=== PATIENT | male | born 1990 | race Caucasian/White ===

== ENCOUNTER 2023-10-19 12:38 | Emergency (ER) | payer OTHER, SELFPAY ==
[2023-10-19 12:43] VITALS: BP 152/92; PULSE 84; TEMP 37; O2SAT 98; BMI 29.0
--- NOTE | 2023-10-19 12:46 | XRR_ITS ---
PROCEDURE INFORMATION: Exam: XR Lumbosacral Spine Exam date and time: 10/19/2023 1:27 PM Age: 33 years old Clinical indication: Injury or trauma; Blunt trauma (contusions or hematomas); Injury details: PT arrives pov C/O lower back pain after falling while pushing a couch. PT states he has HX of back issues. Pain has been unrelieved over the past few days with tylenol and ibuprofen. ; Additional info: Fall TECHNIQUE: Imaging protocol: Radiologic exam of the lumbosacral spine. Views: 2 or 3 views. COMPARISON: No relevant prior studies available. FINDINGS: Bones/joints: Normal. No acute fracture. Normal alignment. Soft tissues: Unremarkable. XR/XR lumbar spine 2-3V* [id number] IMPRESSION: No acute findings.
--- NOTE | 2023-10-19 12:47 | W.ED.FALL ---
HPI - Fall General: Chief Complaint: Back Pain/Injury Stated Complaint: low back pain Time Seen by Provider: 10/19/23 12:43 Source: patient Mode of arrival: ambulatory Limitations: no limitations History of Present Illness: 33-year-old male states he was moving a couch yesterday states that he fell backwards and injured his back. He states he has had some chronic back issues and has had worsening pain down the middle of his low back and right side of the back shooting down his right leg he rates the pain a 7 out of 10 currently denies any bowel or bladder incontinence. Associated symptoms-after fall: Denies abdominal pain, chest pain, headache(s) or neck pain Review of Systems Const: Denies: fever(s), chills, body aches or change in appetite ENMT: Denies: throat pain or dental pain Card: Denies: chest pain Resp: Denies: dyspnea GI: Denies: abdominal pain, nausea, vomiting or diarrhea Musc: Reports: back pain; Denies: neck pain Skin/Breast: Denies: rash Neuro: Denies: headache(s) Physical Exam Const: COMMON NORMALS: no acute distress, patient oriented x3 and healthy appearing HENMT: COMMON NORMALS: normocephalic and atraumatic HEAD & SCALP: normocephalic and atraumatic Neck/C-Spine: COMMON NORMALS: full ROM and supple Chest: COMMONS NORMALS: normal inspection of the chest Resp: COMMON NORMALS: normal respiratory effort Cardio: COMMON NORMALS: regular rate RATE: regular rate Back/Pelvis: OTHER: Low lumbar tenderness along with right lower lumbar tenderness no saddle anesthesia Extremity: COMMON NORMALS: normal to inspection and full ROM Neuro: COMMON NORMALS: patient oriented x3, moves all extremities and no focal motor deficits Psych: COMMON NORMALS: mental status grossly normal, Normal thought process present and cooperative THOUGHT PROCESS: Normal thought process present Skin: COMMON NORMALS: no rashes or lesions noted and no wounds GENERAL SKIN EXAM: no rashes or lesions noted Course Vital Signs: Vital signs: Vital Signs Temperature 98.6 F 10/19/23 12:43 Pulse Rate 84 10/19/23 12:43 Respiratory Rate 20 H 10/19/23 13:43 Blood Pressure 152/92 10/19/23 12:43 Pulse Oximetry 98 10/19/23 12:43 Oxygen Delivery Me thod Room Air 10/19/23 12:43 MDM - Fall Medical Decision Making Patient presents for low back pain is likely lumbar strain we will place him on anti-inflammatories pain meds and muscle relaxant he is follow-up with PCP and return if worsening he understands agrees to plan. Medical Records I reviewed the patient's medical records. XR interpretation done by ED provider, pending radiology final review ED provider radiology interpretation(s): xr l spine no acute abnormality Discharge Plan Discharge Patient Disposition: Home Clinical Impression: Strain of lumbar region Condition: Stable Prescriptions: New hydrocodone-acetaminophen 5-325 mg tablet 1 tab PO Q6H PRN (Reason: pain) Qty: 14 0RF methocarbamol 750 mg tablet 750 mg PO Q6H PRN (Reason: spasms) Qty: 20 0RF Naprosyn 500 mg tablet 500 mg PO BID PRN (Reason: pain) Qty: 20 0RF Discharge Orders: Discharge ED (Routine); Ordered 10/19/23 Ordered By: Naye Oconnor Discharge Diet: Advance as tolerated Discharge Activity: Resume usual activity Patient Instructions: Low Back Strain (ED) Coding Level of Care Code ED Sales Negotiator for Haja Matson
[2023-10-19] MEDS: methocarbamol 750 mg Tablet 1500 MG PO (13:42)
[2023-10-19 13:43] VITALS: RESP 20
[2023-10-19] MEDS: HYDROmorphone 1 mg/mL INJ 1 mL IM (13:43)
[2023-10-19] MEDS: dexamethasone 10 mg/mL INJ IM (13:43)
== END 2023-10-19 13:54 | disposition home or self-care (01) ==
PROVIDERS: Emergency Provider Emergency Medicine
DX: S39.012A Strain of muscle, fascia and tendon of lower back, initial encounter (principal); W19.XXXA Unspecified fall, initial encounter
CPT/HCPCS: 72100; 96372; 99284; J1100; J1170

== ENCOUNTER 2023-10-27 13:52 | Emergency (ER) | payer OTHER, SELFPAY ==
[2023-10-27 14:05] VITALS: BP 129/83; PULSE 93; RESP 16; TEMP 36.7; O2SAT 97; BMI 29.0
--- NOTE | 2023-10-27 14:22 | ED_ITS ---
HPI - Back Pain/Injury General: Chief Complaint: Back Pain/Injury Stated Complaint: back pain Time Seen by Provider: 10/27/23 14:15 Source: patient and family Mode of arrival: ambulatory Limitations: no limitations History of Present Illness: Patient is a nice 33-year-old male who presents to ED today with continued lower back pain. Patient states about a week ago he was moving a couch when he injur ed his back. Patient was seen here in the emergency department and had x-rays performed. He was given pain medications and, muscle relaxers, and IM steroid. He does feel like these medications helped but is now out of them. Patient states he will be traveling back home soon and has plans to follow-up with his primary care provider at that time. He denies neurologic deficits. He has no urinary or bowel dysfunction. Denies saddle anesthesia. MD elicited complaint: back pain and back injury Pertinent past history: recent trauma Onset (ago): day(s) Timing: constant Severity: moderate Location: lumbar spine, right lower back and left lower back Radiation: buttocks and right upper leg Exacerbating factors: movement, sitting upright, walking and lifting Relieving factors: immobilization Context: while lifting Associated symptoms: Reports no associated symptoms and difficulty walking (secondary to back pain); Deny dysuria, fever(s) or hematuria Treatments prior to arrival: NSAIDS, acetaminophen and prescription analgesics Work related injury: No Review of Systems Const: Denies: fever(s) : Denies: flank pain, dysuria or hematuria Musc: Reports: back pain; Denies: neck pain, extremity pain, extremity swelling, joint pain or joint swelling Neuro: Reports: difficulty walking (secondary to back pain); Denies: numbness in extremities, weakness in extremities or sensory changes Physical Exam Const: COMMON NORMALS: no limitations, healthy appearing and well nourished GENERAL APPEARANCE: in distress (appears uncomfortable secondary to pain) : COMMON NORMALS: Yes no CVA tenderness BLADDER/KIDNEY EXAM: Yes no CVA tenderness Back/Pelvis: COMMON NORMALS: no CVA tenderness THORACIC SPINE/UPPER BACK: No thoracic spinal tenderness, No paraspinal muscle tenderness and No paraspinal muscle spasm LUMBAR SPINE/LOWER BACK: Yes ROM limited, No lumbar spinal tenderness, Yes paraspinal muscle tenderness and Yes paraspinal muscle spasm PELVIS: Yes buttocks normal and No sciatic notch tenderness SACROILIAC JOINTS: Yes SI joints normal SACRUM: no tenderness COCCYX: no tenderness Extremity: GENERAL: Yes normal exam except as noted Neuro: COMMON NORMALS: moves all extremities, no focal motor deficits and no sensory deficits noted Course Vital Signs: Vital signs: Vital Signs Temperature 98.0 F 10/27/23 14:05 Pulse Rate 93 10/27/23 14:05 Respiratory Rate 20 H 10/27/23 15:05 Blood Pressure 129/83 10/27/23 14:05 Pulse Oximetry 97 10/27/23 14:05 Oxygen Delivery Me thod Room Air 10/27/23 14:05 MDM - Back Pain/Injury Medical Decision Making There is no need for emergent advanced imaging. Recommend follow-up primary care when he returns home. Will give additional medications today to help control his discomfort in the meantime. Return ED precautions given. Differential Diagnosis Likely lumbar radiculopathy, sciatica and strain of lumbar region Medical Records I reviewed the patient's medical records. No radiology studies performed this visit Discharge Plan Discharge Patient Disposition: Home Clinical Impression: Strain of lumbar region Qualifiers: Encounter type: subsequent encounter Qualified Code(s): S39.012D - Strain of muscle, fascia and tendon of lower back, subsequent encounter Condition: Stable Prescriptions: New prednisone 10 mg tablet 10 mg PO DAILY 7 Days Qty: 27 0RF Rx Instructions: 6 tabs on days 1-2, 5 tabs on days 3, 4 tabs on day 4, 3 tabs on day 5, 2 tabs on day 6, 1 tab on day 7 ketorolac 10 mg tablet 10 mg PO Q8H PRN (Reason: pain) 3 Days Qty: 9 0RF Continued hydrocodone-acetaminophen 5-325 mg tablet 1 tab PO Q6H PRN (Reason: pain) Qty: 14 0RF methocarbamol 750 mg tablet 750 mg PO Q6H PRN (Reason: spasms) Qty: 20 0RF Discontinued naproxen [Naprosyn] 500 mg tablet 500 mg PO BID PRN (Reason: pain) Qty: 20 0RF Discharge Orders: Discharge ED (Routine); Ordered 10/27/23 Ordered By: Tracy Hester Patient Instructions: Opioid Safety, Pain Management Stand Alone Forms: Work/School Release Coding Level of Care Code ED Press Writer for Haja Matson
[2023-10-27 15:05] VITALS: RESP 20
[2023-10-27] MEDS: morphine 4 mg/mL SDV 1 mL IM (15:05)
[2023-10-27] MEDS: dexamethasone 10 mg/mL INJ 8 MG IM (15:08)
== END 2023-10-27 15:17 | disposition home or self-care (01) ==
PROVIDERS: Emergency Provider Physician Assistant
DX: S39.012A Strain of muscle, fascia and tendon of lower back, initial encounter (principal); X50.0XXA Overexertion from strenuous movement or load, initial encounter
CPT/HCPCS: 96372; 99284; J1100; J2270